=== PATIENT | female | born 1955 | race Two or more races ===

== ENCOUNTER 2019-02-05 22:02 | Inpatient (IN) | payer MEDICAID ==
[~2019-02-05] VITALS: Ht 167.6 cm; Wt 75.3 kg
[2019-02-05] MEDS ORDERED: ALBUTEROL (0.083%) 2.5MG/3ML NEB HHN STA (22:32)
[2019-02-05] MEDS ORDERED: IPRATROPIUM BROMIDE (0.02%) 0.5MG/2.5ML NEB HHN STA (22:32)
[2019-02-05] MEDS ORDERED: METHYLPREDNISOLONE SOD SUCC 125 MG/2 ML VIAL IV STA (22:32)
[2019-02-05] MEDS ORDERED: MAGNESIUM 2 G PREMIX 50 ML IV STA (22:32)
[2019-02-05] MEDS ORDERED: KETOROLAC 30MG/ML VIAL IV ONE (22:45)
[2019-02-05 23:04] LABS: HEMATOCRIT 37.9 % (36.0-48.0); HEMOGLOBIN 12.9 g/dL (12.0-16.0); MEAN CORPUSCULAR HEMOGLOBIN 32.8 pg (28.0-32.0); MEAN CORPUSCULAR VOLUME 95.9 fL (81.0-99.0); PLATELET 226 x1000/uL (130-400); RED BLOOD CELL COUNT 3.95 mill/uL (4.2-5.4); RED CELL DISTRIBUTION WIDTH 13.8 % (11.6-14.6)
[2019-02-05 23:09] LABS: CHLORIDE 106 mEq/L (98-107)
[2019-02-06] VITALS (7 sets, daily range): BP systolic 169–220; BP diastolic 86–130
[2019-02-06] MEDS ORDERED: DEXTROSE 50% WATER 50ML SYRINGE IV PRN ×3 (02:30→06:30)
[2019-02-06] MEDS ORDERED: IPRATROPIUM/ALBUTEROL 0.5-3(2.5)MG/3ML NEB HHN PRN ×2 (02:30→06:30)
[2019-02-06] MEDS: BLOOD SUGAR DIAGNOSTIC STRIP TEST SCH ×5 (02:47→20:52)
[2019-02-06] MEDS: INSULIN LISPRO (MEDIUM DOSE) 100 UNITS/ML SUBCUT SCH ×5 (02:53→20:50)
[2019-02-06] MEDS: CLONIDINE 0.1MG TABLET PO PRN ×2 (04:26→09:39)
[2019-02-06] MEDS ORDERED: NON FORMULARY PATIENT HOME MED XX SCH (06:30)
[2019-02-06] MEDS ORDERED: CLONIDINE 0.1MG TABLET PO PRN ×2 (06:30→12:45)
[2019-02-06] MEDS ORDERED: VIST25 MT (06:35)
[2019-02-06] MEDS ORDERED: COR3 MT (06:35)
[2019-02-06] MEDS ORDERED: SERT100T MT (06:35)
[2019-02-06] MEDS ORDERED: LISI-186 MT (06:35)
[2019-02-06] MEDS ORDERED: QUET400T MT (06:35)
[2019-02-06] MEDS ORDERED: HYDR25TA MT (06:35)
[2019-02-06] MEDS ORDERED: BLOOD SUGAR DIAGNOSTIC STRIP TEST SCH (07:20)
[2019-02-06] MEDS: ACETAMINOPHEN 650MG/20.3ML UDC PO PRN ×3 (07:50→22:32)
[2019-02-06] MEDS ORDERED: INSULIN LISPRO 100 UNITS/ML SUBCUT SCH (07:50)
[2019-02-06] MEDS ORDERED: PREDNISONE 20MG TABLET PO SCH (07:50)
[2019-02-06] MEDS ORDERED: IPRATROPIUM/ALBUTEROL 0.5-3(2.5)MG/3ML NEB HHN SCH (08:00)
[2019-02-06] MEDS: METHYLPREDNISOLONE SOD SUCC 40 MG/ML VIAL IV SCH ×3 (08:38→21:00)
[2019-02-06] MEDS: BUDESONIDE 0.5MG/2ML NEB HHN SCH ×2 (09:10→22:26)
[2019-02-06] MEDS: IPRATROPIUM/ALBUTEROL 0.5-3(2.5)MG/3ML NEB HHN SCH ×4 (09:10→22:26)
[2019-02-06] MEDS ORDERED: AMLODIPINE 5MG TABLET PO NR (13:30)
[2019-02-06 15:21] LABS: CLARITY URINE CLEAR (CLEAR); COLOR URINE YELLOW (YELLOW); KETONES URINE NEGATIVE (NEGATIVE); LEUKOCYTE ESTERASE URINE NEGATIVE (NEGATIVE); NITRITE URINE NEGATIVE (NEGATIVE); OCCULT BLOOD URINE NEGATIVE (NEGATIVE); PROTEIN URINE NEGATIVE (NEGATIVE); SPECIFIC GRAVITY URINE 1.014 (1.005-1.030); UROBILINOGEN URINE 0.2 E.U./dL (0.2-1.0)
[2019-02-06 15:35] LABS: *BENZODIAZEPINES SCREEN URINE NEGATIVE (NEGATIVE); *COCAINE SCREEN URINE NEGATIVE (NEGATIVE); METHADONE URINE SCREEN NEGATIVE (NEGATIVE); OPIATES URINE SCREEN NEGATIVE (NEGATIVE); PHENCYCLIDINE URINE SCREEN NEGATIVE (NEGATIVE)
[2019-02-06 15:36] LABS: *AMPHETAMINES SCREEN URINE NEGATIVE (NEGATIVE); *BARBITURATES SCREEN URINE NEGATIVE (NEGATIVE); CANNABINOID URINE SCREEN NEGATIVE (NEGATIVE)
[2019-02-06 16:09] LABS: HEMATOCRIT. 36.3 % (36.0-48.0); HEMOGLOBIN. 12.3 g/dL (12.0-16.0); MEAN CORPUSCULAR HEMOGLOBIN 32.5 pg (28.0-32.0); MEAN PLATELET VOLUME 8.5 fl (7.4-10.4); PLATELET 213 x1000/uL (130-400); RED BLOOD CELL COUNT 3.78 mill/uL (4.2-5.4); RED CELL DISTRIBUTION WIDTH 13.9 % (11.6-14.6)
[2019-02-06 16:24] LABS: CHLORIDE 105 mEq/L (98-107)
[2019-02-06 16:45] LABS: PLATELET ESTIMATE NORMAL
[2019-02-06] MEDS ORDERED: MONTELUKAST SODIUM 10MG TABLET PO SCH (17:00)
[2019-02-06 17:10] LABS: HEPATITIS B SURFACE ANTIGEN NEGATIVE
[2019-02-06] MEDS: LOSARTAN POTASSIUM 50 MG TABLET PO SCH (17:10)
[2019-02-06 17:40] LABS: HEPATITIS A AB IGM NEGATIVE (NEGATIVE)
[2019-02-06] MEDS: AMLODIPINE 5MG TABLET PO SCH (20:52)
[2019-02-06] MEDS: GUAIFENESIN 600MG ER TABLET PO SCH (20:52)
[2019-02-06] MEDS ORDERED: MEDICATION NOT ON FORMULARY EA (Quetiapine Fumarate (Seroquel) 1 TAB) MT SCH (21:00)
[2019-02-06] MEDS ORDERED: QUETIAPINE FUMARATE 100MG TABLET PO SCH (21:00)
[2019-02-07 00:16] VITALS: BP 170/99
[2019-02-07] MEDS: IPRATROPIUM/ALBUTEROL 0.5-3(2.5)MG/3ML NEB HHN SCH ×4 (01:00→12:09)
[2019-02-07 04:20] VITALS: BP 166/91
[2019-02-07] MEDS: CLONIDINE 0.1MG TABLET PO PRN (05:31)
[2019-02-07] MEDS: ACETAMINOPHEN 650MG/20.3ML UDC PO PRN (05:31)
[2019-02-07] MEDS: METHYLPREDNISOLONE SOD SUCC 40 MG/ML VIAL IV SCH (05:31)
[2019-02-07] MEDS: BLOOD SUGAR DIAGNOSTIC STRIP TEST SCH ×2 (06:11→12:34)
[2019-02-07] MEDS: INSULIN LISPRO (MEDIUM DOSE) 100 UNITS/ML SUBCUT SCH ×2 (07:50→12:34)
[2019-02-07 08:00] VITALS: BP 172/89
[2019-02-07] MEDS: LOSARTAN POTASSIUM 50 MG TABLET PO SCH (08:19)
[2019-02-07] MEDS: GUAIFENESIN 600MG ER TABLET PO SCH (08:19)
[2019-02-07] MEDS: AMLODIPINE 5MG TABLET PO SCH (08:19)
[2019-02-07] MEDS: BUDESONIDE 0.5MG/2ML NEB HHN SCH (08:39)
[2019-02-07] MEDS ORDERED: HYDRALAZINE HCL 50MG TABLET PO SCH (11:30)
[2019-02-07 12:00] VITALS: BP 156/72
[2019-02-07 12:39] VITALS: BP 168/78
[2019-02-08 08:11] LABS: HIV SCREEN 4G Non Reactive (Non Reactive)
== END 2019-02-07 18:00 | disposition home or self-care (01) | DRG 140 ==
LOC: ER 22:02 → 6WST 23:30 → ENRESERV 02-06 03:35
PROVIDERS: ADMIT Internal Medicine; ATTEND Internal Medicine
DX: J44.1 Chronic obstructive pulmonary disease with (acute) exacerbation (principal); J96.01 Acute respiratory failure with hypoxia; I11.0 Hypertensive heart disease with heart failure; I50.42 Chronic combined systolic (congestive) and diastolic (congestive) heart failure; K64.9 Unspecified hemorrhoids; F41.9 Anxiety disorder, unspecified; M19.90 Unspecified osteoarthritis, unspecified site; E11.9 Type 2 diabetes mellitus without complications; B19.20 Unspecified viral hepatitis C without hepatic coma; F17.210 Nicotine dependence, cigarettes, uncomplicated; Z88.0 Allergy status to penicillin; Z79.84 Long term (current) use of oral hypoglycemic drugs
CPT/HCPCS: 36415; 71045; 73560; 80048; 80305; 82962; 83036; 83605; 84145; 85027; 86705; 86709; 86803; 87340; 87389; 87804; 93005; 93970; 94640; 94644; 99285; J1815; J1885; J2920; J2930; J3475; J7512; J7611; J7620; J7626